=== PATIENT | female | born 1965 | race Caucasian/White ===

== ENCOUNTER 2020-08-30 08:14 | Outpatient (CLI) | payer OTHER, SELFPAY ==
--- NOTE | 2020-08-30 08:30 | MM_ITS ---
WS: [id number] BILATERAL SCREENING MAMMOGRAM WITH SINA DISPLACEMENT VIEWS. CAD PERFORMED. HISTORY: Z12.39 - Encounter for other screening for malignant neoplasm... COMPARISON: 06/01/2018 and 07/07/2015 Bilateral craniocaudal and mediolateral like views are performed. Sina displacement views in CC and MLO projection also performed. Breasts composition: There are scattered areas of fibroglandular density. Implants are prepectoral. Implants are intact with no interval change. No suspicious masses or calcif ications. MM/[id number] IMPRESSION: BI-RADS: 2-Benign FOLLOW-UP: 1 Year Follow-up
[2020-08-30 09:19] LABS: Cholesterol 248 mg/dL (0-200); HDL Cholesterol 59 mg/dL (60-100); LDL Cholesterol Calculated 174 mg/dL (50-129); LDL HDL Ratio 2.95 RATIO (0.00-3.22); Triglycerides 74 mg/dL (0-150)
[2020-08-30 09:59] LABS: Estmated Average Glucose 91; Hemoglobin A1C 4.8 % (4.0-6.0)
== END 2020-08-30 08:15 | disposition home or self-care (01) ==
LOC: RADSHAW 08:16
PROVIDERS: Family Provider Nurse Practitioner; PCP Nurse Practitioner; Visit Provider Obstetrics & Gynecology
DX: Z12.31 Encounter for screening mammogram for malignant neoplasm of breast (principal); Z78.9 Other specified health status
CPT/HCPCS: 77067; 80061; 83036

== ENCOUNTER → 2021-08-27 13:38 | Outpatient (BNVA) | payer OTHER, SELFPAY | PROVIDERS: Family Provider Nurse Practitioner; PCP Nurse Practitioner; Visit Provider Obstetrics & Gynecology | DX: Z12.4 Encounter for screening for malignant neoplasm of cervix (principal) | CPT/HCPCS: 87624 ==

== ENCOUNTER 2021-10-01 08:25 | Outpatient (CLI) | payer OTHER, SELFPAY ==
--- NOTE | 2021-10-01 08:32 | MM_ITS ---
WS: [id number] BILATERAL SCREENING DIGITAL BREAST MAMMOGRAPHY WITH SINA DISPLACEMENT VIEWS. CAD PERFORMED. HISTORY: Z12.39 - Encounter for other screening for malignant neoplasm... COMPARISON: 08/30/2020, 06/01/2018 Bilateral craniocaudal and mediolateral oblique views are performed with tomosynthesis and SM. Sina displacement views in CC and MLO projection also performed. Breasts composition: There are scattered areas of fibroglandular density. Implants are intact. No interval change. No change in appearance of the breast asymmetries. No suspic ious mass or calcification. MM/[id number] IMPRESSION: BI-RADS: 2-Benign FOLLOW-UP: 1 Year Follow-up
== END 2021-10-01 08:26 | disposition home or self-care (01) ==
LOC: RAD 08:26
PROVIDERS: PCP Clinical Nurse Specialist Adult Health; Visit Provider Obstetrics & Gynecology
DX: Z12.31 Encounter for screening mammogram for malignant neoplasm of breast (principal)
CPT/HCPCS: 77063; 77067

== ENCOUNTER → 2024-07-08 11:10 | Outpatient (BNVA) | payer OTHER, SELFPAY | PROVIDERS: PCP Clinical Nurse Specialist Adult Health; Visit Provider Podiatrist Foot & Ankle Surgery | DX: M79.671 Pain in right foot (principal); G57.61 Lesion of plantar nerve, right lower limb; M79.89 Other specified soft tissue disorders | CPT/HCPCS: 73630 ==